=== PATIENT | female | born 1995 | race Caucasian/White ===

== ENCOUNTER 2017-07-20 16:50 | Day surgery (SDC) | payer OTHER ==
[2017-07-20 17:43] VITALS: BMI 24.5
--- NOTE | 2017-07-20 20:12 | PRG ---
DATE OF SERVICE: 07/20/2017 OB ER ENCOUNTER PRIMARY OB: Flo Vasquez DO CHIEF COMPLAINT: Abdominal pains. HISTORY OF PRESENT ILLNESS: The patient is a 22-year-old, G2, P1 female with an intrauterine at 38 weeks and 6 days, who comes in complaining of abdominal pains. She reports they are about every 2-3 minutes, but they are not that intense yet. She denies any leakage of fluid or vaginal bleeding. She reports she has been having contractions for much of the afternoon. The patient denies fever, headache, chest pain, shortness of breath. She has been having some nausea. Denies any new rashes. Has had diarrhea for the last couple days. Denies any vaginal bleeding, leakage of fluid, or any extremity pain. PAST MEDICAL HISTORY: Negative. PAST SURGICAL HISTORY: She has had some teeth pulled. ALLERGIES: No known drug allergies. SOCIAL HISTORY: Denies drug, alcohol, or tobacco use. MEDICATIONS: vitamins. REVIEW OF SYSTEMS: Per HPI. \ OB LABS: RPR or syphilis screening is nonreactive. Hepatitis B surface antigen nonreactive. HIV nonreactive. Blood type is O positive. She is rubella immune. GC and chlamydia were negative. One-hour Glucola 119. GBS status unknown. PHYSICAL EXAMINATION: VITAL SIGNS: Blood pressure 112/70, heart rate of 88, respiratory rate of 18, temperature 98.5. GENERAL: She appears to be in no acute distress. She is alert, oriented, cooperative, and pleasant to interact with. HEENT: Head is normocephalic, atraumatic. LUNGS: Clear to auscultation bilaterally. HEART: Regular rate and rhythm. ABDOMEN: Gravid, soft, nontender to palpation in between contractions. EXTREMITIES: Nontender, nonedematous. PELVIS: Cervical exam per nursing staff, she is 3, 50, -2 station, unchanged after an hour. heart tracing, NST performed for threatened labor. Baseline is noted to be in the 120s with moderate long-term variability, positive accelerations, no decelerations. Tocometer shows about every 2-3 minutes. ASSESSMENT AND PLAN: The patient is a 22-year-old, G2, P1 female with an intrauterine at 38 weeks and 6 days, who is likely in the early stages of latent labor. The patient is not having strong contractions at this time. She is comfortable going home. She has been given her term labor precautions and will be back if she water breaks or her contractions become more intense. TYLER
== END 2017-07-20 19:15 | disposition home or self-care (01) ==
LOC: L&D/OP 16:50
PROVIDERS: ATTEND Obstetrics & Gynecology
DX: O47.1 False labor at or after 37 completed weeks of gestation (principal); O36.8130 Decreased fetal movements, third trimester, not applicable or unspecified; Z3A.38 38 weeks gestation of pregnancy; Z79.899 Other long term (current) drug therapy
CPT/HCPCS: 99283

== ENCOUNTER 2017-07-20 21:13 | Inpatient (IN) | payer OTHER ==
[2017-07-20] MEDS ORDERED: HYDROcodone/Acetaminophen 5/325 mg Tablet PO PRN ×4 (21:35→22:29)
[2017-07-20] MEDS ORDERED: Lidocaine 1% (PF) 30 ML VIAL SC PRN (21:35)
[2017-07-20] MEDS ORDERED: Ondansetron HCl/PF 4 MG/2 ML Vial IVP PRN (21:35)
[2017-07-20] MEDS ORDERED: Promethazine HCl 25 MG/ML VIAL IM PRN (21:35)
[2017-07-20] MEDS ORDERED: Ibuprofen 800 MG TAB PO PRN (21:35)
[2017-07-20] MEDS ORDERED: Lactated Ringer's 1,000 ML IV SCH ×2 (21:45)
[2017-07-20 21:57] LABS: Hemoglobin 11.8 g/dL (12.0-16.0); Mean Corpuscular HGB CONC 34.7 g/dL (32.0-36.0); Mean Corpuscular Hemoglobin 29.1 pg (27.0-31.0); Mean Corpuscular Volume 83.8 fl (81.0-99.0); Mean Platelet Volume 5.9 fL (7.4-10.4); Platelet Count 222 thou/uL (130-400); RBC Distribution Width 12.5 % (11.5-14.5); Red Blood Cell (RBC) Count 4.05 mill/uL (4.20-5.40); White Blood Cell (WBC) Count 13.6 thou/uL (4.8-10.8)
[2017-07-20] MEDS ORDERED: Bupivacaine 0.5% 20 ML, fentaNYL Citrate/PF 400 MCG in Sodium Chloride 0.9% 72 ML EPIDURAL SCH (22:00)
[2017-07-20] MEDS: LR / Pitocin 40 units/1000 ml 1,000 ML IV PRN (22:03)
[2017-07-20 22:34] LABS: Syphilis Antibody Nonreactive (Nonreactive); Syphilis Antibody Index 0.06 S/CO (<1.00 Non-Reactive)
[2017-07-20 22:40] VITALS: BMI 25.0
[2017-07-20 23:27] LABS: HBSAg Index 0.19 S/CO (0-0.99); Hep B Surf Ag Non-Reactive S/CO (NonReactive)
[2017-07-21] MEDS: LR / Pitocin 40 units/1000 ml 1,000 ML IV PRN (00:02)
[2017-07-21] MEDS ORDERED: Acetaminophen/Codeine 30-300mg Tablet PO PRN ×2 (01:12)
[2017-07-21] MEDS ORDERED: Bisacodyl 10 MG SUPP PR PRN (01:12)
[2017-07-21] MEDS ORDERED: LR / Pitocin 40 units/1000 ml 1,000 ML IV SCH (01:12)
[2017-07-21] MEDS ORDERED: Benzocaine/Menthol 20-0.5% 60 ML CAN TOP PRN (01:12)
[2017-07-21] MEDS ORDERED: Lanolin Ointment 7 GM TUBE TOP PRN (01:12)
[2017-07-21] MEDS ORDERED: Milk Of Magnesia 30 ML UDCUP PO PRN (01:12)
[2017-07-21] MEDS ORDERED: Adacel (T-DAP) 0.5 ML VIAL IM ONE (01:30)
[2017-07-21 05:43] LABS: Hemoglobin 9.5 g/dL (12.0-16.0); Mean Corpuscular HGB CONC 33.2 g/dL (32.0-36.0); Mean Corpuscular Hemoglobin 28.3 pg (27.0-31.0); Mean Corpuscular Volume 85.2 fl (81.0-99.0); Mean Platelet Volume 6.2 fL (7.4-10.4); Platelet Count 181 thou/uL (130-400); RBC Distribution Width 12.5 % (11.5-14.5); Red Blood Cell (RBC) Count 3.37 mill/uL (4.20-5.40); White Blood Cell (WBC) Count 13.4 thou/uL (4.8-10.8)
--- NOTE | 2017-07-21 05:47 | OP ---
The patient delivered a female on 07/20/2017 at 2203 hours by an uncomplicated term spontaneou s vaginal delivery at 38 weeks and 6 days. Placenta delivered spontaneously followed by Pitocin infu olivia. Apgars were 9 and 9. Weight is unavailable at time of dictation. Estimated blood loss is 300 mL. There was a vaginal laceration extending into the labia that was repaired with 3-[address] Marcia Woods is the delivering physician. Mother and baby were stable in the immediate . Cou nts were correct.
[2017-07-21] MEDS: Ibuprofen 800 MG TAB PO SCH ×3 (06:19→21:51)
--- NOTE | 2017-07-21 08:28 | PRG ---
DATE OF SERVICE: 07/21/2017 PRIMARY OB: Dr. Vasquez. SUBJECTIVE: The patient is a 22-year-old female G1, now P1 who is day #1, status post an uncomplicated term spontaneous vaginal delivery. The patient reports she is tolerating p.o., voiding on her own, having decreased lochia. PHYSICAL EXAMINATION: VITAL SIGNS: Today, blood pressure is 111/57, temperature 98.1, pulse of 75, respiratory rate of 16, satting 98% on room air. GENERAL: She appears to be in no acute distress. She is alert and oriented, cooperative and pleasan t to interact with. HEENT: Head is normocephalic, atraumatic. ABDOMEN: Fundus is firm. EXTREMITIES: Nontender, nonedematous. LABORATORY DATA: Her hemoglobin is 9.5, hematocrit 28.7, platelets 181,000. ASSESSMENT AND PLAN: The patient is day #1, status post a term spontaneous vaginal delive ry. Anticipate discharge tomorrow.
[2017-07-21] MEDS: Prenatal Vitamin 1 TAB PO SCH (09:11)
[2017-07-21] MEDS: Docusate Calcium (SURFAK) 240 MG CAP PO SCH ×2 (09:11→21:51)
[2017-07-21] MEDS: Ferrous Sulfate 325 MG TAB PO SCH ×2 (09:11→17:06)
[2017-07-21 17:12] VITALS: TEMP 98.1
[2017-07-22] MEDS: Ibuprofen 800 MG TAB PO SCH (05:53)
--- NOTE | 2017-07-22 06:13 | PDOC.PP ---
Post Progress Note Post Day #: PPD#2 Subjective: Doing well. No complaints. PO intake tolerated: yes Ambulation: yes Vital Signs (12 hours) Temp Pulse Resp 07/22/17 04:00 98.1 F 66 20 07/22/17 00:00 98.1 F 66 20 07/21/17 20:00 98.1 F 66 20 Weight Weight 72.575 kg - Physical Examination Respiratory: non-labored breathing Abdominal: lochia, no distention Extremities: negative homans (B) Neurological: no gross focal deficits Psychiatric: A&Ox3 Result Diagrams: 07/21/17 05:04 Additional Labs: Post Labs Hep Bs Antigen Non-Reactive S/CO (NonReactive) 07/20/17 21:45 - Assessment/Plan DC home. Precautions. RTC with Dr. Vasquez in 6 weeks.
[2017-07-22 08:43] VITALS: BP 107/69
[2017-07-22] MEDS: Docusate Calcium (SURFAK) 240 MG CAP PO SCH (09:32)
[2017-07-22] MEDS: Prenatal Vitamin 1 TAB PO SCH (09:32)
[2017-07-22] MEDS: Ferrous Sulfate 325 MG TAB PO SCH (09:32)
== END 2017-07-22 10:40 | disposition home or self-care (01) | DRG 775 ==
LOC: L&D/OP 21:13 → UNDOADMIN 21:38 → L&D 21:38 → 3SW 07-21 00:32 → UNDODISIN 07-22 10:40
PROVIDERS: ADMIT Obstetrics & Gynecology; ATTEND Obstetrics & Gynecology
PROC: 10E0XZZ Delivery of Products of Conception, External Approach (ICD-10-PCS; principal; 2017-07-20)
PROC: 0KQM0ZZ Repair Perineum Muscle, Open Approach (ICD-10-PCS; 2017-07-20)
DX: O62.3 Precipitate labor (principal); O70.1 Second degree perineal laceration during delivery; Z3A.38 38 weeks gestation of pregnancy; Z37.0 Single live birth; O77.0 Labor and delivery complicated by meconium in amniotic fluid; Z87.891 Personal history of nicotine dependence
CPT/HCPCS: 36415; 85027; 86780; 87340; 99285; J2001; J3010; J3490; J7050